=== PATIENT | male | born 1995 | race Asian ===

== ENCOUNTER 2019-10-22 12:54 | Outpatient (CLI) | payer OTHER | END 2019-10-22 12:56 | disposition short-term general hospital (02) | LOC: AMB 12:54 | DX: R56.9 Unspecified convulsions (principal); R41.82 Altered mental status, unspecified | CPT/HCPCS: A0425; A0427 ==

== ENCOUNTER 2019-10-22 12:58 | Emergency (ER) | payer OTHER ==
[~2019-10-22] VITALS: Ht 195.6 cm; Wt 59.0 kg
[2019-10-22 12:58] VITALS: TEMP 98.7
[2019-10-22 13:31] LABS: PLATELET COUNT 201 K/uL (142-355)
[2019-10-22 13:36] LABS: POTASSIUM 3.9 mmol/L (3.6-5.2)
[2019-10-22 15:30] VITALS: BP 116/68
== END 2019-10-22 15:30 | disposition home or self-care (01) ==
LOC: ED 13:00
PROVIDERS: Emergency Medicine
DX: R56.9 Unspecified convulsions (principal)
CPT/HCPCS: 36415; 80053; 80307; 81000; 83735; 85027; 93005; 96360; 96365; 96366; 99284; J1953; Q2009